=== PATIENT | male | born 1975 | race Caucasian/White ===

== ENCOUNTER 2020-11-20 09:35 | Emergency (ER) | payer BC ==
[~2020-11-20] VITALS: Ht 182.9 cm; Wt 82.0 kg
[2020-11-20 09:40] VITALS: BP 140/80
[2020-11-20] MEDS ORDERED: ONDANSETRON PF 4 MG/2 ML VIAL. IVP ONE (10:45)
--- NOTE | 2020-11-20 11:07 | PHYS DOC ---
General Adult EDM: Chief Complaint: GENERALIZED BODY ACHES HPI: HPI: Patient is a 45-year-old male who presents with nausea, body aches, fever, shortness of breath and diarrhea. Patient states his son was diagnosed with Covid on Friday and his symptoms started on Friday. Patient was tested for Covid on Friday but has not yet received results. Patient is very anxious. Patient is hemodynamically stable. Afebrile. (SANDY LAMAR APRN) Review of Systems: Review of Systems: Constitutional: Reports fever and chills Eyes: Denies change in visual acuity HENT: Denies nasal congestion or sore throat Respiratory: Reports cough and shortness of breath Cardiovascular: Denies chest pain or edema GI: Denies abdominal pain. Reports nausea and diarrhea : Denies dysuria Musculoskeletal: Denies back pain or joint pain Integument: Denies rash Neurologic: Denies headache, focal weakness or sensory changes Endocrine: Denies polyuria or polydipsia Lymphatic: Denies swollen glands Psychiatric: Reports anxiety (SANDY LAMAR APRN) Current Medications: Current Meds: Current Medications Medications (Trade) Dose Ordered Sig/Vannesa Start Time Stop Time Status Last Admin Dose Admin Alprazolam (Xanax) 0.5 mg 1X ONCE 11/20/20 10:45 11/20/20 10:46 UNV Ondansetron HCl (Zofran) 4 mg 1X ONCE 11/20/20 10:45 11/20/20 10:46 UNV (SANDY LAMAR APRN) Physical Exam: PE: Constitutional: Well developed, well nourished, no acute distress, non-toxic appearance. [] HENT: Normocephalic, atraumatic, bilateral external ears normal, oropharynx moist, no oral exudates, nose normal. [] Eyes: PERRLA, EOMI, conjunctiva normal, no discharge. [] Neck: Normal range of motion, no tenderness, supple, no stridor. [] Cardiovascular:Heart rate regular rhythm, no murmur [] Lungs & Thorax: Bilateral breath sounds clear to auscultation [] Abdomen: Bowel sounds normal, soft, no tenderness, no masses, no pulsatile masses. [] Skin: Warm, dry, no erythema, no rash. [] Back: No tenderness, no CVA tenderness. [] Extremities: No tenderness, no cyanosis, no clubbing, ROM intact, no edema. [] Neurologic: Alert and oriented X 3, normal motor function, normal sensory function, no focal deficits noted. [] Psychologic: Anxious affect and mood (SANDY LAMAR APRN) EKG: EKG: [] (SANDY LAMAR APRN) Radiology/Procedures: Radiology/Procedures: []Single AP view of the chest. Comparison: None. Indication: Shortness of breath Findings: The heart is not enlarged. There is no pneumothorax or effusion. No air space or interstitial disease. Impression: 1. No acute cardiopulmonary process. Electronically signed by: Cristian Hess MD (11/20/2020 11:18 AM) [id number] (SANDY LAMAR APRN) Heart Score: C/O Chest Pain: No Risk Factors: Risk Factors: DM, Current or recent (<one month) smoker, HTN, HLP, family history of CAD, obesity. Risk Scores: Score 0 - 3: 2.5% MACE over next 6 weeks - Discharge Home Score 4 - 6: 20.3% MACE over next 6 weeks - Admit for Clinical Observation Score 7 - 10: 72.7% MACE over next 6 weeks - Early Invasive Strategies (SANDY LAMAR APRN) Course & Med Decision Making: Course & Med Decision Making Pertinent Labs and Imaging studies reviewed. (See chart for details) [] 45-year-old male who presents with nausea, fever, shortness of breath and diarrhea. Patient was tested for Covid on Friday but yet to receive results. Patient's son was diagnosed on Friday with Covid and patient symptoms started on Friday. Patient is very anxious and having trouble sleeping. Patient denies being vaccinated for COVID-19. Patient is hemodynamically stable. Denying chest pain. Patient given Zofran, Xanax to help with nausea and anxiety. Chest x-ray unremarkable. (SANDY LAMAR APRN) Course & Med Decision Making I was the Attending physician on the above date of service of this patient. This patient was evaluated, examined, treated, and dispositioned from the emergency department by the mid-level practitioner. Although I was working at the time , no assistance was requested. Electronically signed, Cesar Durbin DO (CESAR DURBIN DO) Chuck Disclaimer: Chuck Disclaimer: This electronic medical record was generated, in whole or in part, using a voice recognition dictation system. (SANDY LAMAR APRN) Departure Departure: Impression: Primary Impression: Nausea vomiting and diarrhea Additional Impressions: Fever and chills Person under investigation for COVID-19 Disposition: 07 LEFT AWOL/ELOPED Condition: STABLE Referrals: TITI VAZQUEZ MD (PCP) Patient Instructions: Fever, Adult, [id number], Nausea and Vomiting, [id number] Additional Instructions: Continue taking ibuprofen and Tylenol to treat fever and chills. I am sending you home with some Zofran to help with your nausea. Continue to quarantine. Drink plenty of fluids. Follow-up with your PCP if symptoms continue. Return to emergency room with worsening symptoms or concerns EMERGENCY DEPARTMENT GENERAL DISCHARGE INSTRUCTIONS Thank you for coming to [facility] (ED) today and trusting us with you care. We trust that you had a positivie experience in our Emergency Department. If you wish to speak to the department management, you may call the director at [phone]. YOUR FOLLOW UP INSTRUCTIONS ARE FOLLOWS: 1. Do you have a private Doctor? If you do not have a private doctor, please ask for a resource list of physicians or clinics that may be able to assist you with follow up care. 2. The Emergency Physician has interpreted your x-rays. The X-Ray specialist will also review them. If there is a change in the findings, you will be notified in 48 hours when at all possible. 3. A lab test or culture has been done, your results will be reviewed and you will be notified if you need a change in treatment. ADDITIONAL INSTRUCTIONS AND INFORMATION: 1. Your care today has been supervised by a physician who is specially trained in emergency care. Many problems require more than one evaluation for a complete diagnosis a nd treatment. We recommend that you schedule your follow up appointment as recommended to ensure complete treatment of you illness or injury. If you are unable to obtain follow up care and continue to have a problem, or if your condition worsens, we recommend that you return to the ED. 2. We are not able to safely determine your condition over the phone nor are we able to give sound medical advice over the phone. For these safety reasons, if you call for medical advice we will ask you to come to the ED for further evaluation. 3. If you have any questions regarding these discharge instructions please call the ED at [phone]. SAFETY INFORMATION: In the interest of safety, wellness, and injury prevention; we encourage you to wear your sealbelt, if you smoke; quite smoking, and we encourage family to use a protective helmet for bicycling and other sporting events that present an increased risk for head injury. IF YOUR SYMPTOMS WORSEN OR NEW SYMPTOMS DEVELOP, OR YOU HAVE CONCERNS ABOUT YOUR CONDITION; OR IF YOUR CONDITION WORSENS WHILE YOU ARE WAITING FOR YOUR FOLLOW UP APPOINTMENT; EITHER CONTACT YOUR PRIMARY CARE DOCTOR, THE PHYSICIAN WHOSE NAME AND NUMBER YOU WERE GIVEN, OR RETURN TO THE ED IMMEDIATELY. Scripts Albuterol Sulfate (PROAIR HFA INHALER) 8.5 Gm Hfa.aer.ad 2 PUFF IH PRN Q4-6HRS PRN for wheezing for 21 Days, #1 INHALER 0 Refills as needed for wheezing Prov: SANDY LAMAR APRN 11/20/20 Ondansetron Hcl (ZOFRAN) 4 Mg Tablet 1 TAB PO Q8HRS for nausea for 10 Days, #30 TAB Prov: SANDY LAMAR APRN 11/20/20 SANDY LAMAR APRN Nov 20, 2020 11:07 CESAR DURBIN DO Nov 21, 2020 06:24
[2020-11-20] MEDS ORDERED: IBUPROFEN 600 MG TABLET. PO ONE (11:15)
--- NOTE | 2020-11-20 11:21 | RAD ---
Single AP view of the chest. Comparison: None. Indication: Shortness of breath Findings: The heart is not enlarged. There is no pneumothorax or effusion. No air space or interstitial diseas e. Impression: 1. No acute cardiopulmonary process. Electronically signed by: Cristian Hess MD (11/20/2020 11:18 AM) [id number]
[2020-11-20] MEDS ORDERED: ONDANSETRON ODT 4 MG TAB.RAPDIS ONE (11:55)
[2020-11-20] MEDS ORDERED: ALPRAZolam 0.25 MG TABLET PO ONE (12:00)
[2020-11-20] MEDS ORDERED: ONDA4TAB7 PO (12:12)
[2020-11-20] MEDS ORDERED: ALBU2.5V8 IH (12:27)
== END 2020-11-20 12:54 | disposition left against medical advice (07) ==
LOC: ER 09:35
DX: R11.2 Nausea with vomiting, unspecified (principal); R19.7 Diarrhea, unspecified; R50.9 Fever, unspecified; Z20.822 Contact with and (suspected) exposure to COVID-19
CPT/HCPCS: 71045; 99283